=== PATIENT | female | born 1945 | race Caucasian/White ===

== ENCOUNTER 2017-01-24 06:25 | Inpatient (IN) | payer MEDICARE, OTHER ==
--- NOTE | ~2017-01-24 | DS ---
Discharge Summary [place] [id number] [facility] [place]. [address] NAME: LAYNE BROWN : 45 STATUS : DIS IN PAT#: [id number] AGE: 71 ADM/REG DATE : 01/24/17 MR#: [id number] REPORT SERV DATE: 01/27/17 DICTATED BY: DATE: REPORT STATUS : Draft TRANSCRIBED BY: MODL DATE: 01/26/17 ADMISSION DATE: 01/24/2017 DISCHARGE DATE: 01/26/2017 DISCHARGE DIAGNOSES: 1. Acute kidney injury-multifactorial. 2. Diabetes mellitus type 2. 3. Hypertension. 4. Hyperkalemia. 5. Asthma. 6. Coronary artery disease. 7. Bradycardia. 8. Moderate left ventricular systolic dysfunction with ejection fraction of 30% to 35%. CONSULTATIONS: Nephrology, Dr. Soriano. STUDIES DONE DURING THIS HOZPITALIZATION: 1. 01/24/2017, CT of the abdomen and pelvis showed evidence of coronary artery disease. No acute GI or obstruction. There are gallstones present and benign right renal cyst. Diverticulosis. 2. 01/25/2017, renal duplex showed no Doppler evidence for significant renal artery stenosis bilaterally. The renal veins are patent bilaterally. Right renal cyst measuring 2 cm. Mildly elevated resistive indices in both kidneys which could represent some underlying medical renal disease. HOSPITAL COURSE: This is a pleasant 71-year-old white female who had an episode of EKG changes and chest pain and underwent a catheterization on 01/17/2017. The patient came in with complaint of abdominal bloating. Please see admission H and P on 01/24/2017. The patient came in with acute kidney injury that could be a multifactorial. The patient has not been eating or drinking well. She came in with low blood pressure and her potassium was 7. The patient was given Kayexalate as well as insulin and D50 and calcium gluconate and bicarb which has subsequently brought her current potassium level down to the 3.9. The patient also has a history of diabetes mellitus with Levemir 24 units b.i.d. and hold for blood sugar of 120. The patient states that she has barely rarely ever used the Levemir and the patient has not required any insulin during her stay. The patient also has not been eating well. We have had clinical staff educator talk with the patient, and I have instructed the patient to keep a log of her blood sugars four times a day before meals and at bedtime and to only use her NovoLog insulin to cover her blood sugars and to call her PCP if her blood sugar is greater than 300 due to patient's lack of need for Levemir insulin so that her PCP will be more able to calculate her actual insulin needs. The patient also has a history of hypertension which are basically p.r.n. medications. We have discussed with the patient to keep a log of her blood pressure twice a day and to take her diltiazem twice daily and not p.r.n. The patient is also going to be going home on losartan instead of Hyzaar, and she will be using the losartan 100 mg daily. The patient also has p.r.n. clonidine for blood pressure greater than 180/110, which the patient states she has never used. This will also allow her PCP upon viewing a log to determine her hypertensive needs. The patient also sees Discharge Summary [address] [address] NAME: LAYNE BROWN : 45 STATUS : DIS IN PAT#: [id number] AGE: 71 ADM/REG DATE : 01/24/17 MR#: [id number] REPORT SERV DATE: 01/27/17 DICTATED BY: DATE: REPORT STATUS : Draft TRANSCRIBED BY: NORA DATE: 01/26/17 Pulmonology for her asthma. The patient states that she frequently uses her inhalers more than four times a day and was instructed to keep a log for her next visit to Pulmonology of how frequently she is using her p.r.n. medication. It was also discovered during our conversation that the patient uses a salt substitute and she is having difficulty complying with 2 g sodium diet. The patient was made aware of the fact that salt substitute is high potassium and other recommendations were made. The patient has continued to do well during her stay with her sodium of 147, potassium 3.9, chloride 112, BUN 18, creatinine 0.99, GFR 66, glucose 102, calcium 8.2, magnesium 1.8. Of note, during her stay, the patient's troponin has been 0.05 to 0.07. The patient is following up with Dr. Lombardo and also has appointment with Pulmonary, and we are instructing the patient to follow up with her PCP in five to seven days for redraw of labs. PHYSICAL EXAMINATION: VITAL SIGNS: Blood pressure is 162/76, heart rate is 78, O2 saturation is 98% on room air, temperature is 98.0, respirations are 16. HEENT: Head is atraumatic, normocephalic. Pupils are equal, round, and reactive to light. Sclerae are clear and nonicteric. NECK: Neck is supple with no obvious thyromegaly or lymphadenopathy. Neck veins are flat. CARDIAC: S1 and S2 with no obvious murmurs, rubs, or gallops. LUNGS: Clear to auscultation except for occasional expiratory wheeze in her left middle lobe and the patient has normal respiratory effort. GI: Abdomen is soft and nontender with active bowel sounds in all four quadrants. Normal bowel habitus. No palpable organomegaly. EXTREMITIES: No significant edema, clubbing, or cyanosis. Dorsalis pedis and posterior tibial pulses are 2+ bilaterally. MUSCULOSKELETAL: Moves all extremities x4. Ambulatory without assistance. No difficulties with balance. SKIN: Skin is warm and dry, intact, normal color and turgor. NEUROPSYCH: The patient is alert and oriented x4, pleasant, cooperative. Cranial nerves II through XII are grossly intact. No apparent anxiety or depression. The patient has not been eating well during her stay. DISCHARGE DIET: 1800 calorie, 4 g sodium. DISCHARGE MEDICATIONS: Aspirin 81 mg daily; atorvastatin 40 mg daily; diltiazem extended release 240 mg twice daily, hold for systolic blood pressure less than 120 or heart rate less than 60; folic acid 1 mg daily; NovoLog insulin per sliding scale level 2 before meals and h.s., Cozaar 100 mg daily, hold for systolic blood pressure less than 120; clonidine 0.1 mg p.r.n. for systolic blood pressure greater than 180; Protonix 40 mg daily; Symbicort 160/4.5 two puffs twice daily; ProAir two puffs as needed for shortness of breath, DuoNeb inhaler four times a day as needed for shortness of breath. Again, the patient has been told to stop her salt substitute. ALLERGIES: THE PATIENT IS ALLERGIC TO PENICILLIN. FOLLOW UP: The patient is to follow up with her PCP in five to seven days with her blood sugar and blood pressure log. The patient to follow up with her global analytics head with her log Discharge Summary [facility] [address] [address] NAME: LAYNE BROWN : 45 STATUS : DIS IN PAT#: [id number] AGE: 71 ADM/REG DATE : 01/24/17 MR#: [id number] REPORT SERV DATE: 01/27/17 DICTATED BY: DATE: REPORT STATUS : Draft TRANSCRIBED BY: MODL DATE: 01/26/17 of use of p.r.n. medications. The patient is to follow up with Dr. Lombardo. In February. Should the patient have anymore abdominal pain or bloating or unusual symptoms, the patient is to call her PCP or present to the ER. Approximately 40 minutes has been spent coordinating discharge care of this patient including teaching and [id number] encounter and summarization of the discharge. ROSALINDA/NORA Bisi Guzman NP / [id number] CC: MD Ashleigh Dunaway M.D.
--- NOTE | ~2017-01-24 | CN ---
Consultation Report [facility] [address] [place]. [address] NAME: LAYNE BROWN : 45 STATUS : ADM IN [facility]#: [id number] AGE: 71 ADM/REG DATE : 01/24/17 MR#: [id number] REPORT SERV DATE: 01/24/17 DICTATED BY: DATE: REPORT STATUS : Draft TRANSCRIBED BY: MODEmmanuel DATE: 01/24/17 CONSULTATION REPORT DATE OF CONSULTATION: CHIEF COMPLAINT: Acute kidney injury and hyperkalemia. HISTORY OF PRESENT ILLNESS: Ms. Brown is a 71-year-old white female with a history of diabetes, coronary artery disease, hypertension, mild CKD. She was in the hospital last week with EKG changes and chest pain, underwent a heart catheterization on 01/17/2017. Also, there was concern over UTI. She was sent home with two doses of Bactrim. She states she did well the first few days after discharge, however, then began noticing abdominal bloating, decreasing urination. No unusual rashes or skin lesions. No shortness of breath or chest pain. No lower extremity edema. No nausea, vomiting, or diarrhea. She states she has been drinking quite well. Then, today, her blood pressure was dropping into the 90s, heart rate in the 40s, that prompted her ER visit where she was found to have a potassium of 7 and creatinine was up to 1.9 from her usual what looks to be 1. She has been treated medically with Kayexalate, D50, insulin, and calcium, and her potassium is down to 5.4. Her heart rate has improved. We have been asked to see the patient in consultation. She does have a Roy in place with good urine output. She has had a renal ultrasound and a CT, none of which show obstruction. She does have some nonobstructing stone. PAST MEDICAL HISTORY: Coronary artery disease, recent heart catheterization with no obstructive disease, diabetes, hypertension, CKD, and asthma. SOCIAL HISTORY: She lives with her daughter. No tobacco, alcohol, or illicit drug use. FAMILY MEDICAL HISTORY: No end-stage renal disease or other kidney disease, but is positive for coronary artery disease. ALLERGIES: PENICILLIN. MEDICATIONS: At home, not listed. She took two doses of Bactrim after discharge, so that would have been 01/19/2017 and 01/20/2017. DuoNeb, ProAir, Lipitor, Symbicort, Catapres, Cartia, folic acid, NovoLog, Levemir, losartan, HCTZ, and Protonix. REVIEW OF SYSTEMS: A 12-point review of systems was obtained and negative with the exception that in the HPI. PHYSICAL EXAMINATION: VITAL SIGNS: Temp 98, blood pressure 154/66, pulse 62, respiratory rate 16, and O2 saturation is 93%. GENERAL: This is a pleasant, cooperative white female. She is awake, alert, and oriented x3, in no acute distress, answers questions appropriately. Consultation Report [place] [id number] [place]. [address] NAME: LAYNE BROWN : 45 STATUS : ADM IN [facility]#: [id number] AGE: 71 ADM/REG DATE : 01/24/17 MR#: [id number] REPORT SERV DATE: 01/24/17 DICTATED BY: DATE: REPORT STATUS : Draft TRANSCRIBED BY: MODL DATE: 01/24/17 HEENT: Normocephalic and atraumatic. Conjunctivae are clear. Sclerae are anicteric. Pupils are equal and round. Oral mucosa is moist. NECK: Supple. Carotids are without bruits. Neck veins are flat. No lymphadenopathy. RESPIRATIONS: Even and unlabored breath sounds. Clear to auscultation. HEART: Rate is regular. No murmur, rub, or gallop. ABDOMEN: Soft and nontender. Bowel sounds are active. No masses. No hepatosplenomegaly. No bruits. No CVA tenderness. BACK: Within normal limits. EXTREMITIES: Without any edema, cyanosis, or clubbing. SKIN: Warm, dry, and intact. No unusual rashes or skin lesions. NEURO: No focal deficits. Mood and affect, pleasant and appropriate. PERTINENT LABS AND X-RAYS: CPK of 59. Troponin 0.05. Complements are both normal. Creatinine has gone from 7 to 5.4, sodium 146, chloride 112, CO2 of 24, BUN of 32, creatinine is down to 1.79, and calcium of 9. Urinalysis has hyaline casts, 17 white blood cells per high-powered field, 3 red blood cells per high-powered field, and 30 mg/dL of protein. LFTs are unremarkable. IMPRESSION: 1. Acute kidney injury on mild chronic kidney disease, baseline probably 1. 2. Hyperkalemia. 3. Bradycardia. 4. Hypotension. 5. Recent heart catheterization on 01/17/2017. 6. Recent urinary tract infection with Bactrim post last discharge. 7. Ejection fraction of 30% to 35%. PLAN/RECOMMENDATIONS: Acute kidney injury on mild CKD with catheterization on 01/17/2017 and also a UTI and discharged with Bactrim. I suspect the main culprit for this acute kidney injury is Bactrim. She could have some component of contrast-induced nephropathy. Of course, she has good urine output, creatinine is already coming down, potassium has already improved, she has already received Kayexalate suspect that this will continue to improve. May see some rebound in potassium. We will follow along with you. Hold ARB. I's and O's and labs. Avoid nephrotoxins as able. Thank you for the consult. JERE/NORA SEBASTIAN Aguirre / [id number] Consultation Report [address] [place]. [address] NAME: LAYNE BROWN : 45 STATUS : ADM IN [facility]#: [id number] AGE: 71 ADM/REG DATE : 01/24/17 MR#: [id number] REPORT SERV DATE: 01/24/17 DICTATED BY: DATE: REPORT STATUS : Draft TRANSCRIBED BY: NORA DATE: 01/24/17 CC: MD Ashleigh Dunaway M.D.
--- NOTE | ~2017-01-24 | HP ---
History And Physical [place] [id number] [facility] [place]. [address] NAME: LAYNE BROWN : 45 STATUS : ADM IN [facility]#: [id number] AGE: 71 ADM/REG DATE : 01/24/17 MR#: [id number] REPORT SERV DATE: 01/24/17 DICTATED BY: VICENTE AGUILLON DATE: 01/24/17 REPORT STATUS : Draft TRANSCRIBED BY: MODEmmanuel DATE: 01/24/17 DATE OF ADMISSION: 01/24/2017 CHIEF COMPLAINT: Abdominal bloating. HISTORY OF PRESENT ILLNESS: The patient is a very pleasant 71-year-old white female. She had an episode of EKG changes and chest pain and actually underwent a cath on 01/17/2017. She had coronary artery disease, but nothing they felt needed to have any PTCI performed. She also went home. She states over the last several days, she has had increased abdominal bloating and diminished urine output. She felt dehydrated. Had a little bit of a loss of appetite, but states she was drinking plenty of fluids. She noted that her blood pressure was low at 93/43 at home and she also had a low pulse in the 40s. She became concerned this morning and presented to [facility] Emergency Department. Here, she was noted to have an acute kidney injury with hyperkalemia. PAST MEDICAL HISTORY: 1. Hypertension. 2. Diabetes mellitus. 3. CAD with history of PTCI. 4. Asthma. 5. CKD with baseline creatinine around 1. 6. Previous episode of acute kidney injury at [facility] approximately 4 years ago, Details unknown. SOCIAL HISTORY: She is a nondrinker and a nonsmoker. FAMILY HISTORY: Negative for any kidney disease, but there is some coronary artery disease, but not until her father was in his 80s. HOME MEDICATIONS: Reviewed and attached. REVIEW OF SYSTEMS: A full 10-point review of systems is obtained. Pertinent positives as mentioned in the HPI. ALLERGIES: PENICILLIN. PHYSICAL EXAMINATION: VITAL SIGNS: Initially, her pulse was in the 40s. After receiving D50, insulin, bicarb, and calcium gluconate, her pulse lainey up to the 70s. BP 138/65. Temperature 97.6. Respiratory rate 16. Sats 95%. GENERAL: A well-developed white female. HEENT: Normocephalic, atraumatic. Throat is clear. NECK: Supple. HEART: Regular rate and rhythm. LUNGS: Grossly clear. ABDOMEN: Soft, mildly distended, but nontender. History And Physical [address] [address] NAME: LAYNE BROWN : 45 STATUS : ADM IN PAT#: [id number] AGE: 71 ADM/REG DATE : 01/24/17 MR#: [id number] REPORT SERV DATE: 01/24/17 DICTATED BY: VICENTE AGUILLON DATE: 01/24/17 REPORT STATUS : Draft TRANSCRIBED BY: NORA DATE: 01/24/17 EXTREMITIES: Warm and dry. She has no peripheral edema. SKIN: She has no evidence of any embolic findings on her skin. NEUROLOGIC: She is alert. She is oriented to person, place, and time. PSYCHIATRIC: Her mood and affect are appropriate. LAB AND X-RAY: Previous urine culture was essentially negative from the . CBC: Hemoglobin and hematocrit are 14 and 43, white count 13.7, platelets 338 with a normal differential. Sodium is 140, potassium 7, chloride 110, CO2 of 21, BUN and creatinine are 36 and 1.97, glucose 146. LFTs are normal. Lipase is 357. Troponin is 0.04. CT of the abdomen and pelvis shows no evidence of obstruction. Urinalysis shows 17 whites and moderate leukocyte esterase. EKG shows sinus solange with a right bundle-branch block and some T-wave inversions. It looks like on tele after receiving all the meds, all those changes have resolved and she now has sinus rhythm with rate in the 70s. ASSESSMENT/PLAN: 1. Acute kidney injury with associated hyperkalemia, likely multifactorial. I suspect there is a component of acute tubular necrosis. She has been hypotensive. She was started on some new blood pressure medications including Cardizem. She also has a history of contrast exposure approximately six-seven days ago. She certainly could have contrast nephropathy. Also must consider atheroembolic event to her kidneys given cardiac cath. She also has some mild evidence of urinary tract infection. There is no evidence, however, of mechanical obstruction. Would recommend treating her hyperkalemia aggressively, which we have done in the ER. She is also going to get Kayexalate 15 g p.o. q.6 hours in addition to the insulin, D50, calcium gluconate, and bicarb. I am going to try to give her some IV fluids to hydrate her, monitor in's and out's, place a Roy catheter, obtain urine electrolytes, CPK, urine eosinophils, complements, and have the Nephrology Service see her in consultation. I have called in a consult to them this morning and awaiting a call back. We will place her on a tele bed. She just received the medications for hyperkalemia in the ER, so I am going to have her hold here for 45 minutes to recheck her potassium before sending her to the floor. 2. Diabetes mellitus. Hold her Levemir for now since she has an acute kidney injury. She may be prone to hypoglycemia with increased activity of insulin. Would recommend seeing how her sugar does. We will place her on sliding scale for now. 3. Hypertension, holding antihypertensives given relative hypotension. 4. History of coronary artery disease with recent PTCI. Repeat EKG in the morning. Initial troponin is negative. She does need to be on aspirin, I need to question her about that. 5. History of asthma, stable, p.r.n. nebs. 6. Deep venous thrombosis prophylaxis with subcutaneous heparin. 7. Disposition, pending above. 8. Sinus solange with a right bundle, likely secondary to hyperkalemia, now improved post treatment of hyperkalemia. BETINA/NORA History And Physical [address] [address] NAME: LAYNE BROWN : 45 STATUS : ADM IN [facility]#: [id number] AGE: 71 ADM/REG DATE : 01/24/17 MR#: [id number] REPORT SERV DATE: 01/24/17 DICTATED BY: VICENTE AGUILLON DATE: 01/24/17 REPORT STATUS : Draft TRANSCRIBED BY: NORA DATE: 01/24/17 Vicente Aguillon M.D. / [id number] CC: MD Ashleigh Dunaway M.D.
[~2017-01-24 06:25] MED LIST: BACTRIM DS1 TAB PO; CARDCD240 PO; CAT1 PO; FOLIC PO; HYZAAR 100/25 T1 TAB PO; LEVEMFLXPN SC; LIPITOR40 PO; LOP50 PO; NOVOPEN; PRAVAC PO; PROAIR HFA INH; PROTONIX PO; SYMBICORT 160/41 INH INH; T3 PO
[2017-01-24 06:32] LABS: BASOPHILS 0.4 %; BASOPHILS ABSOLUTE 0.06 10/3/uL (0.0-0.16); EOSINOPHILS 0.9 %; EOSINOPHILS ABSOLUTE 0.12 10/3/uL (0.0-0.53); HEMATOCRIT 42.9 % (36.0-48.0); HEMOGLOBIN 14.3 g/dL (12.0-16.0); IMMATURE GRANULOCYTES 0.1 %; LYMPHOCYTES 51.5 %; LYMPHOCYTES ABSOLUTE 7.08 10/3/uL (0.67-4.30); MEAN CORPUS HGB CONC 33.3 g/dL (32.0-36.0); MEAN CORPUSCULAR HEMOGLOB 29.4 pg (26.0-34.0); MEAN CORPUSCULAR VOLUME 88.1 fL (80-100); MONOCYTES 11.8 %; MONOCYTES ABSOLUTE 1.62 10/3/uL (0.21-1.20); NEUTROPHILS 35.3 %; NEUTROPHILS ABSOLUTE 4.84 10/3/uL (2.02-8.40); PLATELET COUNT 338 10/3/uL (150-400); RBC DISTRIBUTION WIDTH 15.4 % (12.0-16.0); RED CELL COUNT 4.87 10/6/uL (4.0-5.6); WHITE BLOOD CELLS 13.7 10/3/uL (4.5-10.5)
[2017-01-24 06:36] LABS: IMMATURE GRANULOCYTES ABSOLUTE 0.02 10/3/uL (0.0-0.11); MANUAL DIFF NO %
[2017-01-24 06:40] LABS: INTERNATIONAL NORMAL RATI 1.1 UNITS (-); PARTIAL THROMBO TIME 26.7 SEC (22.5-37.2); PROTIME (NOT ORD) 13.8 SEC (12.0-14.5)
[2017-01-24 06:53] LABS: ALKALINE PHOSPHATASE 76 U/L (45-117); BUN (BLOOD UREA NITROGEN) 36 MG/DL (6-23); CHEST PAIN PROFILE TAT 0 Hrs 25 Mins; CHLORIDE, SERUM 110 MMOL/L (96-112); CO2 (CARBON DIOXIDE) 21 MMOL/L (24-34); CREATININE 1.97 MG/DL (0.55-1.02); DIRECT BILIRUBIN < 0.1 MG/DL (0.0-0.4); GFR AFRICAN AMERICAN 29 ML/MIN (>=60); GFR NON AFRICAN AMERICAN 25 ML/MIN (>=60); GLUCOSE, SERUM 146 MG/DL (60-99); INDIRECT BILIRUBIN(NOT ORDER) 0.1 MG/DL (0.1-0.9); SGPT(ALT) 25 U/L (5-65); SODIUM, SERUM 140 MMOL/L (135-148); TOTAL BILIRUBIN 0.2 MG/DL (0-1.2); TOTAL PROTEIN 8.5 G/DL (6.0-8.5); TROPONIN I 0.04 NG/ML (<0.05)
[2017-01-24 06:55] LABS: EOSINOPHILS 1 %; EOSINOPHILS ABSOLUTE (CALC) 0.14 10/3/uL (0.0-0.53); ER DIFF TAT 0 Hrs 27 Mins; LYMPHOCYTES 50 %; LYMPHOCYTES ABSOLUTE (CALC) 6.85 10/3/uL (0.67-4.30); MONOCYTES 5 %; MONOCYTES ABSOLUTE (CALC) 0.69 10/3/uL (0.21-1.20); NEUTROPHILS ABSOLUTE (CALC) 6.03 10/3/uL (2.02-8.40); RBC MORPHOLOGY NORM (NORMAL); SEGMENTED NEUTROPHIL (0) 44 %; SGOT(AST) 18 U/L (5-40); TOTAL NUCLEATED CELLS 100
[2017-01-24] MEDS ORDERED: NOVOLOG SC (07:45)
[2017-01-24] MEDS ORDERED: LIPITOR40 PO (07:45)
[2017-01-24] MEDS ORDERED: LEVEMFLXPN SC (07:45)
[2017-01-24] MEDS ORDERED: CARTIA XT240 MG/24 PO (07:46)
[2017-01-24] MEDS ORDERED: FOLIC PO (07:46)
[2017-01-24] MEDS ORDERED: PROTONIX PO (07:46)
[2017-01-24] MEDS ORDERED: SYMBICORT 160/41 INH INH (07:47)
[2017-01-24] MEDS ORDERED: HYZAAR 100/25 T1 TAB PO (07:47)
[2017-01-24] MEDS ORDERED: PROAIR HFA INH (07:47)
[2017-01-24] MEDS ORDERED: DUONEB INH (07:48)
[2017-01-24] MEDS ORDERED: CAT1 PO (07:48)
[2017-01-24 08:21] LABS: ASCORBIC ACID (UR NOT ORDER) NEG (NEG); BILIRUBIN, URINE NEGATIVE (NEG); ER URINALYSIS TAT 0 Hrs 00 Mins; KETONE, URINE NEGATIVE (NEG); LEUKOCYTE ESTERASE(NOT OR MOD (NEG); NITRITE (URINE) NEG (NEG); WBC (NOT ORDERED) (RFLEX) 17 (0-5)
[2017-01-24 10:14] LABS: BUN (BLOOD UREA NITROGEN) 33 MG/DL (6-23); CHLORIDE, SERUM 112 MMOL/L (96-112); CO2 (CARBON DIOXIDE) 24 MMOL/L (24-34); CREATININE 1.79 MG/DL (0.55-1.02); GFR AFRICAN AMERICAN 32 ML/MIN (>=60); GFR NON AFRICAN AMERICAN 28 ML/MIN (>=60); SODIUM, SERUM 146 MMOL/L (135-148)
[2017-01-24 10:15] LABS: POTASSIUM, SERUM 5.4 MMOL/L (3.5-5.3)
[2017-01-24 10:16] LABS: GLUCOSE, SERUM 95 MG/DL (60-99)
[2017-01-24 12:12] LABS: COMPLEMENT C4 36.7 MG/DL (16-47)
[2017-01-24 12:16] LABS: TROPONIN I 0.05 NG/ML (<0.05)
[2017-01-24 20:38] LABS: BUN (BLOOD UREA NITROGEN) 21 MG/DL (6-23); CALCIUM, SERUM 8.3 MG/DL (8.5-10.4); CHLORIDE, SERUM 114 MMOL/L (96-112); CO2 (CARBON DIOXIDE) 23 MMOL/L (24-34); CREATININE 1.31 MG/DL (0.55-1.02); GFR AFRICAN AMERICAN 47 ML/MIN (>=60); GFR NON AFRICAN AMERICAN 41 ML/MIN (>=60); GLUCOSE, SERUM 121 MG/DL (60-99); POTASSIUM, SERUM 4.1 MMOL/L (3.5-5.3); SODIUM, SERUM 146 MMOL/L (135-148); TROPONIN I 0.05 NG/ML (<0.05)
[2017-01-25 04:03] LABS: BASOPHILS 0.6 %; BASOPHILS ABSOLUTE 0.05 10/3/uL (0.0-0.16); EOSINOPHILS 1.7 %; EOSINOPHILS ABSOLUTE 0.14 10/3/uL (0.0-0.53); IMMATURE GRANULOCYTES 0.2 %; IMMATURE GRANULOCYTES ABSOLUTE 0.02 10/3/uL (0.0-0.11); LYMPHOCYTES 40.4 %; LYMPHOCYTES ABSOLUTE 3.28 10/3/uL (0.67-4.30); MEAN CORPUS HGB CONC 32.2 g/dL (32.0-36.0); MEAN CORPUSCULAR HEMOGLOB 28.6 pg (26.0-34.0); MEAN PLATELET VOLUME 8.8 fL (9.2-13.0); MONOCYTES 10.5 %; MONOCYTES ABSOLUTE 0.85 10/3/uL (0.21-1.20); NEUTROPHILS 46.6 %; NEUTROPHILS ABSOLUTE 3.78 10/3/uL (2.02-8.40); PLATELET COUNT 316 10/3/uL (150-400); RBC DISTRIBUTION WIDTH 15.5 % (12.0-16.0); RED CELL COUNT 4.19 10/6/uL (4.0-5.6)
[2017-01-25 04:08] LABS: HEMATOCRIT 37.3 % (36.0-48.0); MANUAL DIFF NO %; WHITE BLOOD CELLS 8.1 10/3/uL (4.5-10.5)
[2017-01-25 04:43] LABS: BUN (BLOOD UREA NITROGEN) 18 MG/DL (6-23); CALCIUM, SERUM 8.2 MG/DL (8.5-10.4); CHLORIDE, SERUM 112 MMOL/L (96-112); CO2 (CARBON DIOXIDE) 26 MMOL/L (24-34); CREATININE 0.99 MG/DL (0.55-1.02); GFR AFRICAN AMERICAN 66 ML/MIN (>=60); GFR NON AFRICAN AMERICAN 57 ML/MIN (>=60); GLUCOSE, SERUM 102 MG/DL (60-99); POTASSIUM, SERUM 3.9 MMOL/L (3.5-5.3); SODIUM, SERUM 147 MMOL/L (135-148)
[2017-01-25 04:44] LABS: TROPONIN I 0.07 NG/ML (<0.05)
[2017-01-26 06:52] LABS: BASOPHILS 0.5 %; BASOPHILS ABSOLUTE 0.04 10/3/uL (0.0-0.16); EOSINOPHILS 1.7 %; EOSINOPHILS ABSOLUTE 0.15 10/3/uL (0.0-0.53); HEMATOCRIT 40.4 % (36.0-48.0); HEMOGLOBIN 13.5 g/dL (12.0-16.0); IMMATURE GRANULOCYTES 0.2 %; IMMATURE GRANULOCYTES ABSOLUTE 0.02 10/3/uL (0.0-0.11); LYMPHOCYTES 39.4 %; LYMPHOCYTES ABSOLUTE 3.48 10/3/uL (0.67-4.30); MEAN CORPUS HGB CONC 33.4 g/dL (32.0-36.0); MEAN CORPUSCULAR HEMOGLOB 29.2 pg (26.0-34.0); MEAN CORPUSCULAR VOLUME 87.3 fL (80-100); MEAN PLATELET VOLUME 8.6 fL (9.2-13.0); MONOCYTES 10.2 %; NEUTROPHILS ABSOLUTE 4.25 10/3/uL (2.02-8.40); PLATELET COUNT 344 10/3/uL (150-400); RBC DISTRIBUTION WIDTH 14.9 % (12.0-16.0); RED CELL COUNT 4.63 10/6/uL (4.0-5.6); WHITE BLOOD CELLS 8.8 10/3/uL (4.5-10.5)
[2017-01-26 06:53] LABS: MANUAL DIFF NO %
[2017-01-26 07:06] LABS: CHLORIDE, SERUM 109 MMOL/L (96-112); CO2 (CARBON DIOXIDE) 24 MMOL/L (24-34); CREATININE 0.82 MG/DL (0.55-1.02); GFR AFRICAN AMERICAN 83 ML/MIN (>=60); GFR NON AFRICAN AMERICAN 72 ML/MIN (>=60); GLUCOSE, SERUM 108 MG/DL (60-99); POTASSIUM, SERUM 3.5 MMOL/L (3.5-5.3); SODIUM, SERUM 145 MMOL/L (135-148)
[2017-01-26 07:07] LABS: BUN (BLOOD UREA NITROGEN) 11 MG/DL (6-23); CALCIUM, SERUM 9.3 MG/DL (8.5-10.4)
[2017-01-26] MEDS ORDERED: ASAB PO (11:38)
[2017-01-26] MEDS ORDERED: COZAAR100 MG PO (11:44)
== END 2017-01-26 12:58 | disposition home or self-care (01) | DRG 683 ==
LOC: ER 06:25 → 2SO 07:53
PROVIDERS: Emergency Medicine; Internal Medicine; Nurse Practitioner Family
DX: N17.0 Acute kidney failure with tubular necrosis (principal); I50.22 Chronic systolic (congestive) heart failure; E11.22 Type 2 diabetes mellitus with diabetic chronic kidney disease; I13.0 Hypertensive heart and chronic kidney disease with heart failure and stage 1 through stage 4 chronic kidney disease, or unspecified chronic kidney disease; N39.0 Urinary tract infection, site not specified; T37.0X5A Adverse effect of sulfonamides, initial encounter; E87.5 Hyperkalemia; E86.9 Volume depletion, unspecified; N18.9 Chronic kidney disease, unspecified; I25.10 Atherosclerotic heart disease of native coronary artery without angina pectoris; J45.909 Unspecified asthma, uncomplicated; I45.10 Unspecified right bundle-branch block; R00.1 Bradycardia, unspecified; K80.80 Other cholelithiasis without obstruction; K57.90 Diverticulosis of intestine, part unspecified, without perforation or abscess without bleeding; N28.1 Cyst of kidney, acquired; Z95.1 Presence of aortocoronary bypass graft; Z88.0 Allergy status to penicillin
CPT/HCPCS: 74176; 80048; 80076; 81001; 82550; 82962; 83036; 83690; 83735; 84484; 85025; 85610; 85730; 86160; 86162; 87086; 93005; 93975; 94640; 96374; 99285; A9270-GY; C9113; J0360; J0610